=== PATIENT | female | born 1955 | race Caucasian/White ===

== ENCOUNTER → 2017-01-16 | Outpatient (CLI) | payer BC | END | disposition home or self-care (01) | LOC: RAD.S 09:11 | DX: M54.5 Low back pain (principal); M47.816 Spondylosis without myelopathy or radiculopathy, lumbar region; M47.814 Spondylosis without myelopathy or radiculopathy, thoracic region; M81.0 Age-related osteoporosis without current pathological fracture; M54.6 Pain in thoracic spine ==

== ENCOUNTER 2017-01-22 09:26 | Emergency (ER) | payer BC ==
--- NOTE | 2017-01-28 10:17 | ER ---
ADMIT: 01/22/2017 RM/LOC: ER [facility] MR#: [id number] [id number] [place] [address] [address] [place], [place] [id number] Emergency Room Report SEX: F AGE: 61 : 1955 DATE: 01/22/2017 HISTORY OF PRESENT ILLNESS: The patient is a 61-year-old female, who presents with a month of pelvic pain. She has had a urinary evaluation as a matter of fact, she has had an appointment with Urology in a couple of weeks. She is here today. She says, she has had such an intense pain that hurts in her right buttocks area. She has some dysuria or some frequency. REVIEW OF SYSTEMS: Otherwise, negative. She denies any headache, fever, nausea, or vomiting. PAST MEDICAL HISTORY: Includes: 1. Arthritis. 2. Osteoporosis. 3. T and A. 4. Vaginal delivery. MEDICATIONS: She takes: 1. Calcium. 2. Tylenol. ALLERGIES: PENICILLIN. PHYSICAL EXAMINATION: She has suprapubic fullness. Vitals are within normal limits except blood pressure is 158/99. She is afebrile. Moderately anxious, but very pleasant. LABORATORY DATA: CBC within normal limits. Chemistry; potassium is 3.6. UA is normal. Ultrasound of the pelvic organs shows 3 cm fibroid in anterior aspect of the fundus. She received a shot of Toradol and was helpful. IMPRESSION: 1. Pelvic pain. 2. Uterine fibroid. Ketorolac prescription #20. Appointment with Dr. Khan drier belt conveyor today for 02/17 as soon as we can get her in. The patient can call in to check for any cancellations. Ketorolac 10 mg p.o. for pain control and/or follow up with Dr. Schreiber for further disposition and studies. Cookie B Zima, PA / Juan R Andre MD / modl JOB #: [id number] CC: Juan R Andre MD, Attending Physician UNKNOWN, Family Physician
== END 2017-01-22 13:01 | disposition home or self-care (01) ==
LOC: ER 09:26
DX: D25.9 Leiomyoma of uterus, unspecified (principal); M81.0 Age-related osteoporosis without current pathological fracture; Z88.0 Allergy status to penicillin